=== PATIENT | female | born 1965 | race Caucasian/White ===

== ENCOUNTER 2017-08-04 18:19 | Emergency (ER) | payer OTHER ==
[~2017-08-04] VITALS: Wt 81.6 kg
[~2017-08-04 18:19] MED LIST: AMOXICILLIN500 MG PO; BACTRIM DS 8001 TA1 PO; BIAXIN; CIPRO500 MG PO; CIPROFLOXACIN500 MG PO; FLAGYL500 MG PO; NAPROSYN500 MG PO; PERCOCET 325 MG1 TA1; PERCOCET 325 MG1 TA2 PO; PROTONIX40 MG PO; PYRIDIUM200 MG PO; ULTRAM50 MG PO; VICODIN 5/500 505 MG PO
[2017-08-04] MEDS ORDERED: BUDEPRION XL150 MG PO (18:23)
[2017-08-04] MEDS ORDERED: GOOD NEIGHBOR L10 MG PO (18:23)
[2017-08-04] MEDS ORDERED: Percocet 325 MG1 TAB PO (18:24)
[2017-08-04] MEDS ORDERED: Tobrex Ophth S2.5 ML OPH (18:26)
[2017-08-04 18:35] VITALS: BP 153/95
== END 2017-08-04 18:34 | disposition home or self-care (01) ==
LOC: ED 18:19
DX: H10.9 Unspecified conjunctivitis (principal); F17.200 Nicotine dependence, unspecified, uncomplicated; Z98.890 Other specified postprocedural states; Z98.51 Tubal ligation status; Z88.6 Allergy status to analgesic agent; Z88.8 Allergy status to other drugs, medicaments and biological substances; Z79.899 Other long term (current) drug therapy

== ENCOUNTER → 2017-09-06 | Outpatient (CLI) | payer OTHER ==
[~2017-09-06] MED LIST changes: +BUDEPRION XL150 MG PO; +GOOD NEIGHBOR L10 MG PO; +Percocet 325 MG1 TAB PO; +Tobrex Ophth S2.5 ML OPH
== END | disposition home or self-care (01) ==
LOC: RAD 08-31 11:00
DX: Z13.820 Encounter for screening for osteoporosis (principal); M81.0 Age-related osteoporosis without current pathological fracture; N95.9 Unspecified menopausal and perimenopausal disorder; E55.9 Vitamin D deficiency, unspecified

== ENCOUNTER 2019-01-25 10:42 | Inpatient (IN) | payer BC ==
[~2019-01-25] VITALS: Ht 162.5 cm; Wt 77.8 kg
--- NOTE | ~2019-01-25 | EKG ---
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
--- NOTE | ~2019-01-25 | ST ---
[place], [place] EXERCISE STRESS TEST REPORT NAME: GREGORIO QURESHI UNIT #: [id number] ROOM: 531 DOCTOR: DYLAN ORLANDO MD BIRTHDATE: [birth year] DOS: 01/26/2019 LEXISCAN STRESS EKG. REFERRING PHYSICIAN: Dr. Brito. INDICATION: Elevated troponin. The patient underwent standard protocol Lexiscan stress EKG. The patient's baseline EKG is normal sinus, nonspecific ST-T wave changes. Heart rate was 83 with blood pressure 112/72. Peak heart rate was 104 with a blood pressure 104/68. The patient had no chest pain, no EKG changes, no arrhythmias. SUMMARY OF FINDINGS: Unremarkable Lexiscan stress EKG. Please see separate report for perfusion scan imaging results. DYLAN ORLANDO MD CM:STRESS:EXERCISE STRESS TEST REPORT [id number] DYLAN ORLANDO MD
--- NOTE | ~2019-01-25 | EKG ---
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
[2019-01-25 10:45] VITALS: BP 145/87
[2019-01-25 11:13] LABS: BASO # 0.1 10*3/uL (0.0-0.1); BASO % 0.6 % (0.0-1.0); EOS # 0.2 10*3/uL (0.0-0.4); EOS % 1.2 % (1.0-4.0); HEMATOCRIT 52.3 % (37.0-47.0); HEMOGLOBIN 16.1 g/dl (12.0-16.0); LYMPH # 2.1 10*3/uL (1.3-4.4); LYMPH % 15.7 % (27.0-41.0); MEAN CELL VOLUME 95.3 fl (81.0-99.0); MEAN CORPUSCULAR HGB 29.3 pg (27.0-31.0); MEAN CORPUSCULAR HGB CONC 30.8 g/dl (33.0-37.0); MEAN PLATELET VOLUME 9.8 fl (9.6-12.3); MONO # 0.9 10*3/uL (0.1-1.0); MONO % 7.1 % (3.0-9.0); NEUT # 9.8 10*3/uL (2.3-7.9); NEUT % 75.1 % (47.0-73.0); PLATELET COUNT AUTOMATED 313 10*3/uL (130-400); RED BLOOD COUNT 5.49 10*6/uL (4.10-5.10)
[2019-01-25 11:23] LABS: ACT PARTIAL THROMBO TIME 26.1 SECONDS (20.0-32.1)
[2019-01-25 11:28] LABS: ALBUMIN 2.8 gm/dl (3.1-4.5); ALKALINE PHOSPHATASE 85 U/L (45-117); BUN 16 mg/dl (7-24); CHLORIDE 105 mmol/L (98-107); CREATININE 0.46 mg/dL (0.55-1.02); LIPASE 91 U/L (73-393); POTASSIUM 4.2 mmol/L (3.5-5.1); SGOT/AST 42 IU/L (3-35); SGPT/ALT 68 U/L (12-78); SODIUM 138 mmol/L (136-145); TOTAL PROTEIN 6.2 gm/dL (6.4-8.2)
[2019-01-25 11:32] LABS: TROPONIN I 0.134 ng/ml (<0.045)
[2019-01-25 12:00] VITALS: BP 142/96
[2019-01-25 12:32] VITALS: BP 126/81
[2019-01-25 13:00] VITALS: BP 142/82
[2019-01-25] MEDS ORDERED: PROAIR HFA8.5 GM INH (13:47)
[2019-01-25] MEDS ORDERED: CALCITONIN-SAL3.7 ML INH (13:49)
[2019-01-25] MEDS ORDERED: DULERA 100 MCG8.8 GM INH (13:51)
[2019-01-25 16:00] VITALS: BP 153/50
[2019-01-25 20:00] VITALS: BP 101/66
[2019-01-26] VITALS: BP 113/66
[2019-01-26 06:32] LABS: BASO % 0.1 % (0.0-1.0); HEMATOCRIT 55.2 % (37.0-47.0); MEAN CELL VOLUME 92.9 fl (81.0-99.0); MEAN CORPUSCULAR HGB 28.6 pg (27.0-31.0); MEAN CORPUSCULAR HGB CONC 30.8 g/dl (33.0-37.0); MONO # 0.3 10*3/uL (0.1-1.0); MONO % 2.7 % (3.0-9.0); NEUT # 11.3 10*3/uL (2.3-7.9); NEUT % 88.5 % (47.0-73.0); PLATELET COUNT AUTOMATED 343 10*3/uL (130-400); RED BLOOD COUNT 5.94 10*6/uL (4.10-5.10); RED CELL DISTRI WIDTH 13.7 % (0-14.5); WHITE BLOOD COUNT 12.7 10*3/uL (4.8-10.8)
[2019-01-26 06:33] LABS: BUN 14 mg/dl (7-24); CHLORIDE 101 mmol/L (98-107); CHOLESTEROL 151 mg/dL (<200); CREATININE 0.51 mg/dL (0.55-1.02); HDL CHOLESTEROL 36 mg/dl (40-60); LDL CHOLESTEROL 98 mg/dL (9-159); PHOSPHOROUS 4.5 mg/dL (2.5-4.9); POTASSIUM 4.3 mmol/L (3.5-5.1); SODIUM 140 mmol/L (136-145); TRIGLYCERIDES 86 mg/dl (<150); VLDL CHOLESTEROL 17 mg/dL (6-40)
[2019-01-26 08:00] VITALS: BP 120/70
[2019-01-26 08:34] LABS: VITAMIN D, 25-HYDROXY 12.1 ng/mL (30-100)
[2019-01-26 13:25] VITALS: BP 125/76
[2019-01-26] MEDS ORDERED: PREDNISONE10 MG PO (15:59)
[2019-01-26] MEDS ORDERED: LASIX20 MG PO (15:59)
[2019-01-26] MEDS ORDERED: AVPAK AZITHROM250 MG PO (15:59)
== END 2019-01-26 17:42 | disposition home or self-care (01) | DRG 871 ==
LOC: ED 10:42 → EDHOLD 12:16 → 5E 12:16
PROVIDERS: Emergency Medicine; Student in an Organized Health Care Education/Training Program; ADMIT Internal Medicine
PROC: 4A02XM4 Measurement of Cardiac Total Activity, External Approach (ICD-10-PCS; principal; 2019-01-26)
PROC: 3E073KZ Introduction of Other Diagnostic Substance into Coronary Artery, Percutaneous Approach (ICD-10-PCS; principal; 2019-01-26)
DX: A41.9 Sepsis, unspecified organism (principal); J96.01 Acute respiratory failure with hypoxia; J18.9 Pneumonia, unspecified organism; I21.A1 Myocardial infarction type 2; E43 Unspecified severe protein-calorie malnutrition; J44.1 Chronic obstructive pulmonary disease with (acute) exacerbation; J44.0 Chronic obstructive pulmonary disease with (acute) lower respiratory infection; I50.9 Heart failure, unspecified; I34.0 Nonrheumatic mitral (valve) insufficiency; I51.7 Cardiomegaly; R65.20 Severe sepsis without septic shock; E66.3 Overweight; F32.9 Major depressive disorder, single episode, unspecified; K57.90 Diverticulosis of intestine, part unspecified, without perforation or abscess without bleeding; D75.1 Secondary polycythemia; R73.9 Hyperglycemia, unspecified; R74.0 Nonspecific elevation of levels of transaminase and lactic acid dehydrogenase [LDH]; F17.210 Nicotine dependence, cigarettes, uncomplicated; Z71.6 Tobacco abuse counseling; Z90.49 Acquired absence of other specified parts of digestive tract; Z98.51 Tubal ligation status; Z80.0 Family history of malignant neoplasm of digestive organs; Z80.8 Family history of malignant neoplasm of other organs or systems; Z82.49 Family history of ischemic heart disease and other diseases of the circulatory system; Z84.89 Family history of other specified conditions; Z88.6 Allergy status to analgesic agent; Z88.8 Allergy status to other drugs, medicaments and biological substances; Z79.899 Other long term (current) drug therapy; Z87.440 Personal history of urinary (tract) infections; Z68.29 Body mass index [BMI] 29.0-29.9, adult

== ENCOUNTER 2019-11-18 16:39 | Inpatient (IN) | payer BC ==
[~2019-11-18] VITALS: Ht 162.6 cm; Wt 83.6 kg
[~2019-11-18 16:39] MED LIST changes: +AVPAK AZITHROM250 MG PO; +CALCITONIN-SAL3.7 ML INH; +DULERA 100 MCG8.8 GM INH; +LASIX20 MG PO; +PREDNISONE10 MG PO; +PROAIR HFA8.5 GM INH
[2019-11-18 16:48] VITALS: BP 158/79
[2019-11-18 17:52] LABS: BASO # 0.1 10*3/uL (0.0-0.1); BASO % 0.5 % (0.0-1.0); EOS # 0.2 10*3/uL (0.0-0.4); EOS % 1.2 % (1.0-4.0); HEMATOCRIT 47.3 % (37.0-47.0); LYMPH # 2.7 10*3/uL (1.3-4.4); LYMPH % 19.3 % (27.0-41.0); MEAN CELL VOLUME 95.2 fl (81.0-99.0); MEAN CORPUSCULAR HGB CONC 30.4 g/dl (33.0-37.0); MEAN PLATELET VOLUME 9.5 fl (9.6-12.3); MONO # 1.1 10*3/uL (0.1-1.0); MONO % 7.7 % (3.0-9.0); NEUT # 9.8 10*3/uL (2.3-7.9); NEUT % 70.9 % (47.0-73.0); PLATELET COUNT AUTOMATED 346 10*3/uL (130-400); RED BLOOD COUNT 4.97 10*6/uL (4.10-5.10); RED CELL DISTRI WIDTH 13.4 % (0-14.5); WHITE BLOOD COUNT 13.8 10*3/uL (4.8-10.8)
[2019-11-18 18:04] LABS: ACT PARTIAL THROMBO TIME 26.6 SECONDS (20.0-32.1)
[2019-11-18 18:09] VITALS: BP 114/80
[2019-11-18 18:12] LABS: ALKALINE PHOSPHATASE 86 U/L (45-117); BUN 12 mg/dl (7-24); CHLORIDE 105 mmol/L (98-107); CREATININE 0.52 mg/dL (0.55-1.02); LIPASE 40 U/L (73-393); POTASSIUM 4.2 mmol/L (3.5-5.1); SGOT/AST 46 IU/L (3-35); SGPT/ALT 75 U/L (12-78); SODIUM 140 mmol/L (136-145); TOTAL PROTEIN 6.4 gm/dL (6.4-8.2)
[2019-11-18 18:14] LABS: TROPONIN I 0.103 ng/ml (<0.045)
--- NOTE | 2019-11-18 18:16 | NUR ---
PT POSITIONED FOR COMFORT WITH SAFETY PRECAUTIONS INTACT AND CALL LIGHT WITHIN REACH,NO COMPLAINTS VOICED,WILL CONTINUE TO MONITOR.
[2019-11-18 18:40] VITALS: BP 123/83
--- NOTE | 2019-11-18 19:12 | NUR ---
PATIENT WHEEZES HAVE RESIDED AFTER THE BREATHING TREATMENT, OXYGEN TITRATED FROM 3L TO 2L NASAL CANNULA.
--- NOTE | 2019-11-18 19:38 | NUR ---
PT W/O COMPLAINTS VOICED AND "FEELING A LITTLE BETTER", PT WATCHING T.V. WITH SAFETY PRECAUTIONS INTACT AND CALL LIGHT WITHIN REACH.
[2019-11-18 20:27] VITALS: BP 116/73
--- NOTE | 2019-11-18 20:57 | NUR ---
O2 D/C'D WITH PT'S SAO2 REMAINING CONSISTENTLY BETWEEN 84-89% ON RA,AVE CHAPA,PT WITH O2 REAPPLIED @ 2L VIA NC.
[2019-11-18 22:08] VITALS: BP 141/90
--- NOTE | 2019-11-18 22:08 | NUR ---
A 54, admitted to , under the services of RELL Vicente DO with a diagnosis of COPD . Chief complaint is SHORTNESS OF BREATH. Patient arrived via stretcher from ER. Monitor applied. Initial assessment completed. Vital signs taken and recorded. RELL VICENTE DO notified of admission to the unit. Orders received. See assessment for past medical history, medications and allergies. Patient and/or family oriented to unit. [facility]. Clothing/patient valuable form completed. SHARAD ANDINO
[2019-11-18 22:15] VITALS: BP 125/79
--- NOTE | 2019-11-18 23:05 | NUR ---
MEDICATED WITH NORCO FOR C/O ARTHRITIC PAIN.
[2019-11-19] VITALS: BP 132/81
--- NOTE | 2019-11-19 00:05 | NUR ---
RESTING IN BED WITH EYES CLOSED; NORCO EFFECTIVE.
[2019-11-19 00:30] LABS: TROPONIN I 0.08 ng/ml (<0.045)
--- NOTE | 2019-11-19 00:30 | NUR ---
CRITICAL TROPONIN CALLED TO ME & THEN CALLED TO DR. LANIER.
--- NOTE | 2019-11-19 04:00 | NUR ---
RESTING IN BED WITH EYES CLOSED; 02 INTACT. CALL LIGHT WITHIN REACH.
--- NOTE | 2019-11-19 05:55 | NUR ---
PULSE OX 95% ON 3 LITERS.
[2019-11-19 06:08] LABS: BASO % 0.1 % (0.0-1.0); HEMATOCRIT 48.3 % (37.0-47.0); LYMPH # 0.8 10*3/uL (1.3-4.4); LYMPH % 7.9 % (27.0-41.0); MEAN CELL VOLUME 95.3 fl (81.0-99.0); MEAN CORPUSCULAR HGB 29.2 pg (27.0-31.0); MEAN CORPUSCULAR HGB CONC 30.6 g/dl (33.0-37.0); MEAN PLATELET VOLUME 9.8 fl (9.6-12.3); MONO # 0.4 10*3/uL (0.1-1.0); MONO % 3.5 % (3.0-9.0); NEUT # 8.7 10*3/uL (2.3-7.9); NEUT % 87.6 % (47.0-73.0); PLATELET COUNT AUTOMATED 340 10*3/uL (130-400); RED BLOOD COUNT 5.07 10*6/uL (4.10-5.10); RED CELL DISTRI WIDTH 13.3 % (0-14.5); WHITE BLOOD COUNT 9.9 10*3/uL (4.8-10.8)
[2019-11-19 06:10] LABS: BUN 16 mg/dl (7-24); CHLORIDE 103 mmol/L (98-107); CHOLESTEROL 136 mg/dL (<200); CREATININE 0.53 mg/dL (0.55-1.02); FREE T4 0.96 ng/dl (0.76-1.46); HDL CHOLESTEROL 41 mg/dl (40-60); LDL CHOLESTEROL 83 mg/dL (9-159); POTASSIUM 4.1 mmol/L (3.5-5.1); SODIUM 142 mmol/L (136-145); TRIGLYCERIDES 62 mg/dl (<150); VLDL CHOLESTEROL 12 mg/dL (6-40)
[2019-11-19 06:18] LABS: THYROID STIM HORMONE (HS) 0.362 uIU/ml (0.358-4.75)
[2019-11-19 06:51] LABS: VITAMIN D, 25-HYDROXY 13.1 ng/mL (30-100)
[2019-11-19 08:00] VITALS: BP 128/74
[2019-11-19 12:00] VITALS: BP 134/69
--- NOTE | 2019-11-19 13:02 | NUR ---
PERCOCET 5/325 GIVEN PER PATIENT REQUEST FOR PAIN IN RIGHT SHOULDER AND RIGHT LEG RATING 8/10.
--- NOTE | 2019-11-19 14:00 | NUR ---
NO COMPLAINTS OF PAIN. PERCOCET EFFECTIVE.
[2019-11-19 16:00] VITALS: BP 112/60
[2019-11-19 20:00] VITALS: BP 139/82
--- NOTE | 2019-11-19 20:40 | NUR ---
PATIENT ASSESSMENT COMPLETED AT THIS TIME WITHOUT INCIDENT. PATIENT DENIES ANY CHEST PAIN, SOB, OR OTHER DISTRESS. DOES COMPLAIN OF CHRONIC PAIN IN HER SHOULDERS AND LEGS, WILL MEDICATED WITH REQUESTED PRN PERCOCET. CALL LIGHT WITHIN REACH, WILL CONTINUE TO MONITOR.
--- NOTE | 2019-11-19 21:10 | NUR ---
PRN PERCOCET GIVEN AT THIS TIME FOR COMPLAINT OF 7/10 CHRONIC PAIN IN HER SHOULDERS AND LEGS. A&O X3, CALL LIGHT WITHIN REACH, WILL CONTINUE TO MONITOR.
--- NOTE | 2019-11-19 22:00 | NUR ---
PATIENT RESTING IN BED IN A POSITION OF COMFORT, STATED PAIN IS NOW A 4/10 AFTER PRN PERCOCET WAS ADMINISTERED.
[2019-11-20] VITALS: BP 102/81
--- NOTE | 2019-11-20 04:02 | NUR ---
PRN TYLENOL GIVEN AT THIS TIME FOR PATIENT COMPLAINT OF A HEADACHE 10/31. A&O X3, CALL LIGHT WITHIN REACH, WILL CONTINUE TO MONTIOR.
--- NOTE | 2019-11-20 04:50 | NUR ---
PATIENT RESTING IN BED IN A POSITION OF COMFORT WITH EYES CLOSED AT THIS TIME, RESPIRATIONS EASY AND NON-LABORED. PRN TYLENOL APPEARS TO BE EFFECTIVE AT THIS TIME. CALL LIGHT WITHIN REACH, WILL CONTINUE TO MONITOR.
[2019-11-20 06:25] LABS: BUN 16 mg/dl (7-24); CHLORIDE 104 mmol/L (98-107); CREATININE 0.45 mg/dL (0.55-1.02); POTASSIUM 4.7 mmol/L (3.5-5.1); SODIUM 143 mmol/L (136-145)
[2019-11-20 06:30] LABS: BASO % 0.2 % (0.0-1.0); HEMATOCRIT 47.6 % (37.0-47.0); LYMPH # 1.9 10*3/uL (1.3-4.4); LYMPH % 10.2 % (27.0-41.0); MEAN CELL VOLUME 96.6 fl (81.0-99.0); MONO # 1.4 10*3/uL (0.1-1.0); MONO % 7.7 % (3.0-9.0); NEUT # 14.9 10*3/uL (2.3-7.9); NEUT % 81.3 % (47.0-73.0); PLATELET COUNT AUTOMATED 359 10*3/uL (130-400); RED BLOOD COUNT 4.93 10*6/uL (4.10-5.10); RED CELL DISTRI WIDTH 13.5 % (0-14.5); WHITE BLOOD COUNT 18.3 10*3/uL (4.8-10.8)
--- NOTE | 2019-11-20 06:30 | NUR ---
24 HOUR CHART CHECK COMPLETE
--- NOTE | 2019-11-20 07:30 | NUR ---
IN PT ROOM TO COMPLETE ASSESSMENT AT THIS TIME, SHE IS SITTING UP IN HER BED FINISHING HER BREATHING TREATMENT. PT STATES THAT SHE FEELS SOB, BUT NOT BAD SHE WAS FEELING. SHE IS ON 3L NC. SHE VOICES NO OTHER COMPLAINTS AT THIS TIME. CALL LIGHT WITHIN REACH, WILL CONTINUE TO MONITOR
[2019-11-20 07:46] VITALS: BP 138/84
--- NOTE | 2019-11-20 07:47 | NUR ---
Shift chart check completed.
--- NOTE | 2019-11-20 09:00 | NUR ---
Police Officer Crime Prevention in to talk to patient. Patient states lives at home with son. There are no steps in the home. Physician: ana paula [facility]acy: [facility] Home health services: none Patient's level of ADLs: INDEPENDENT Patient has working utilities: all working DME: [employer] Follow-up physician's appointment after d/c: will be made by hospitalist nurse director upon discharge Does patient want to access PORTAL?: no Discharge plan discussed with patient, she states she lives at home with her son, she is independent in adls and ambulation, works, drives, has a nebulzier at home, no home oxygen, she states she will return home when discharged and denies any home needs. FRANCESCA GUZMÁN
--- NOTE | 2019-11-20 09:07 | NUR ---
CALLED DR DANIELLE FOR NEW CONSULT
--- NOTE | 2019-11-20 09:47 | NUR ---
DR DANIELLE IN TO SEE PATIENT
--- NOTE | 2019-11-20 11:06 | NUR ---
PRN TYLENOL PO GIVEN FOR COMPLAINTS OF A HEADACHE. WILL MONITOR FOR EFFECTIVENESS, CALL LIGHT WITHIN REACH
[2019-11-20 12:00] VITALS: BP 148/88
--- NOTE | 2019-11-20 12:00 | NUR ---
TYLENOL AFFECTIVE PER PT
--- NOTE | 2019-11-20 12:18 | NUR ---
PRN PERCOCET PO GIVEN FOR COMPLAINTS OF LEG, ARM AND NECK PAIN. WILL MONITOR FOR EFFECTIVENESS
[2019-11-20 12:56] LABS: ABG BASE EXCESS 5.9 mmol/L (-2.0-2.0); ARTERIAL BLOOD GAS PH 7.332 (7.35-7.45)
--- NOTE | 2019-11-20 13:00 | NUR ---
PRN PERCOCET EFFECTIVE PER PT. CALL LIGHT WITHIN REACH, WILL CONTINUE TO MONITOR
--- NOTE | 2019-11-20 13:11 | NUR ---
IV started left antecubital with #22 protective cath after 1 attempts. Site prepped with Chloroprep. Sterile dressing applied. Patient tolerated procedure well. JAYSON DE JESUS
--- NOTE | 2019-11-20 13:12 | NUR ---
PT IS EATING LUNCH AND CT MADE AWARE, THEY STATE TO HAVE THE PATIENT STOP EATING AND SHE WILL GO DOWN FOR CT IN 4 HOURS
--- NOTE | 2019-11-20 13:22 | NUR ---
CALLED DR DANIELLE AND INFORMED HIM OF BLOOD GAS. WILL ADD ORDERS DESIRED
--- NOTE | 2019-11-20 13:57 | NUR ---
PT PLACED ON BIPAP
[2019-11-20 16:00] VITALS: BP 121/72
[2019-11-20 16:06] LABS: ABG BASE EXCESS 7.1 mmol/L (-2.0-2.0); ARTERIAL BLOOD GAS PH 7.385 (7.35-7.45)
--- NOTE | 2019-11-20 16:44 | NUR ---
DR DANIELLE NOTIFIED OF [facility], HE WANTS THE PATIENT TO BE KEPT ON BIPAP AT NIGHT WITH THE SAME SETTINGS AND NEEDED
--- NOTE | 2019-11-20 16:45 | NUR ---
PT OFF FLOOR TO CT
--- NOTE | 2019-11-20 17:14 | NUR ---
PT BACK ON FLOOR
[2019-11-20 20:00] VITALS: BP 128/77
--- NOTE | 2019-11-20 20:15 | NUR ---
PATIENT ASSESSMENT COMPLETED AT THIS TIME WITHOUT INCIDENT. PATIENT DENIES ANY CHEST PAIN, SOB, OR OTHER DISTRES AT THIS TIME. IS REQUESTING PRN PERCOCET WITH NIGHTTIME MEDICATIONS SHE TAKES AT HOME. CALL LIGHT WITHIN REACH, WILL CONTINUE TO MONITOR.
--- NOTE | 2019-11-20 21:16 | NUR ---
PRN PERCOCET GIVEN ORALLY AT THIS TIME AT PATIENT REQUEST FOR CHRONIC BACK, SHOULDER AND LEG PAIN. A&O X3, CALL LIGHT WITHIN REACH, WILL CONTINUE TO MONITOR.
--- NOTE | 2019-11-20 22:05 | NUR ---
PATIENT STATED THAT PAIN WENT FROM A 6/10 TO A 4/10 AFTER PRN PERCOCET WAS ADMINISTERED. A&O X3, CALL LIGHT WITHIN REACH. WILL CONTINUE TO MONITOR.
--- NOTE | 2019-11-20 23:15 | NUR ---
Pt placed on BiPap 16/8 and 30%. Alrams on and audible. SpO2 96%
--- NOTE | 2019-11-20 23:48 | NUR ---
PRN RESTORIL GIVEN AT PATIENT REQUEST FOR SLEEP TO PATIENT STATED "HELP ME SLEEP WITH THIS MACHINE ON", PATIENT WAS BEING PLACED ON BIPAP AT THIS TIME. A&O X3, CALL LIGHT WITHIN REACH, WILL CONTINUE TO MONITOR.
[2019-11-21] VITALS: BP 144/82
--- NOTE | 2019-11-21 00:35 | NUR ---
PATIENT RESTING IN BED IN A POSITION OF COMFORT AT THIS TIME WITH BIPAP IN USE. CALL LIGHT WITHIN REACH. RESTORIL APPEARS TO HAVE BEEN EFFECTIVE. WILL CONTINUE TO MONITOR.
--- NOTE | 2019-11-21 03:45 | NUR ---
Pt taken off BiPap per nurse. Placed back on 3L NC. SpO2 96%
--- NOTE | 2019-11-21 03:52 | NUR ---
24 HOUR CHART CHECK COMPLETE
[2019-11-21 06:54] LABS: BASO % 0.2 % (0.0-1.0); HEMATOCRIT 47.3 % (37.0-47.0); LYMPH # 1.8 10*3/uL (1.3-4.4); LYMPH % 11.5 % (27.0-41.0); MEAN CELL VOLUME 96.5 fl (81.0-99.0); MEAN CORPUSCULAR HGB 29.6 pg (27.0-31.0); MEAN CORPUSCULAR HGB CONC 30.7 g/dl (33.0-37.0); MEAN PLATELET VOLUME 9.5 fl (9.6-12.3); MONO # 1.1 10*3/uL (0.1-1.0); NEUT # 12.7 10*3/uL (2.3-7.9); NEUT % 80.7 % (47.0-73.0); PLATELET COUNT AUTOMATED 350 10*3/uL (130-400); RED CELL DISTRI WIDTH 13.3 % (0-14.5); WHITE BLOOD COUNT 15.7 10*3/uL (4.8-10.8)
[2019-11-21 07:16] LABS: ALBUMIN 2.9 gm/dl (3.1-4.5); ALKALINE PHOSPHATASE 68 U/L (45-117); BUN 20 mg/dl (7-24); CHLORIDE 103 mmol/L (98-107); CREATININE 0.52 mg/dL (0.55-1.02); POTASSIUM 3.8 mmol/L (3.5-5.1); SGOT/AST 8 IU/L (3-35); SGPT/ALT 39 U/L (12-78); SODIUM 141 mmol/L (136-145); TOTAL PROTEIN 6.6 gm/dL (6.4-8.2)
--- NOTE | 2019-11-21 07:56 | NUR ---
PT IS SLEEPING AT THIS TIME. RESPIRATIONS RELAXED AND REGULAR. 3L NC ON. CALL LIGHT NEAR PATIENT. WILL CONTINUE TO MONITOR
[2019-11-21 08:00] VITALS: BP 131/60
--- NOTE | 2019-11-21 08:22 | NUR ---
RUPERTO SERRA IN TO SEE PATIENT
--- NOTE | 2019-11-21 08:37 | NUR ---
CONSULT CALLED TO ANSWERING SERVICE FOR DR MADDEN
--- NOTE | 2019-11-21 09:50 | NUR ---
DR MOODY IN TO SEE PATIENT AT THIS TIME.
[2019-11-21 12:00] VITALS: BP 145/81
--- NOTE | 2019-11-21 12:40 | NUR ---
HOME O2 ASSESSMENT: ROOM AIR AT REST: SPO2 90-92% HR 98 BP 128/72 ROOM AIR WITH AMBULATION: SPO2 86% HR 118 RR 24 2L SUPPLEMENTAL O2 AT REST: SPO2 94% HR 92 2L O2 WITH AMBULATION: SPO2 91-93% HR 100 RECOVERY ON 2L NC: SPO2 92% HR 104 RR 24 BP 144/81 PT. REQUIRES 2L O2 WITH AMBULATION TO KEEP SPO2 >= TO 88%. RN NOTIFIED.
[2019-11-21 13:27] LABS: ABG BASE EXCESS 7.8 mmol/L (-2.0-2.0); ARTERIAL BLOOD GAS PH 7.372 (7.35-7.45)
--- NOTE | 2019-11-21 13:45 | NUR ---
DR. DANIELLE OFFICE CALLED WITH [facility] RESULTS
[2019-11-21 16:00] VITALS: BP 143/77
--- NOTE | 2019-11-21 16:07 | NUR ---
PRN PERCOCET PO GIVEN FOR COMPLAINTS OF SHOULDER AND BACK PAIN, WILL MONITOR FOR EFFECTIVENESS
--- NOTE | 2019-11-21 17:00 | NUR ---
PERCOCET IS EFFECTIVE PER PT. WILL CONTINUE TO MONITOR
--- NOTE | 2019-11-21 19:25 | NUR ---
ASSUMED CARE OF PATIENT. PATIENT IS RESTING IN BED WITH EASY AND REGULAR RESPERS ON 2L O2 VIA NC. ASSESSMENT IS COMPLETE WITH NO C/O OR S/S OF DISTRESS NOTED AT THIS TIME. BED IS LOW, LOCKED, AND CALL LIGHT IS WITHIN REACH. RESPIRATORY INTO GIVE PATIENT BREATHING TREATMENT. WILL CONTINUE TO MONITOR, SEE INTERVENTIONS.
[2019-11-21 20:00] VITALS: BP 148/82
--- NOTE | 2019-11-21 23:26 | NUR ---
SHOULDER AND LEG PAIN PER PT. RATED "7" PERCOCET GIVEN FOR PAIN PER ORDER. SEE MAR. RESTORIL GIVEN FOR INSOMNIA PER PT. REQUEST. SEE MAR.
--- NOTE | 2019-11-21 23:30 | NUR ---
Pt placed on BiPap 16/8 and FiO2 30%. Alarms on and audible.
[2019-11-22] VITALS: BP 151/90
--- NOTE | 2019-11-22 00:25 | NUR ---
PERCOCET EFFECTIVE FOR PAIN PER PT. RESTORIL NOT EFFECTIVE YET PATIENT STILL AWAKE. HAS BIPAP ON.
--- NOTE | 2019-11-22 01:09 | NUR ---
PATIENT REMOVED BIPAP STATED "I JUST CAN'T DO IT. I TRIED"
--- NOTE | 2019-11-22 03:09 | NUR ---
SLEEPING NO ACUTE DISTRESS NOTED.
--- NOTE | 2019-11-22 03:46 | NUR ---
24 HR chart check completed.
--- NOTE | 2019-11-22 07:47 | NUR ---
ASSESSMENT COMPLETE AT THIS TIME. PT HAS COMPLAINTS OF PAIN AND A HEAD ACHE WHICH SHE STATES IS FROM THE BIPAP. RESPIRATORY ON THE FLOOR AND SET UP PORTABLE OXYGEN IF PATIENT FEELS UP TO WALKING TODAY. CALL LIGHT WITHIN REACH. PRN PERCOCET GIVEN FOR PAIN IN BACK AND LEGS. WILL CONTINUE TO MONITOR FOR EFFECTIVENESS.
[2019-11-22 08:00] VITALS: BP 148/97
--- NOTE | 2019-11-22 08:35 | NUR ---
PT STATES THAT THE PERCOCET IS "SOMEWHAT EFFECTIVE". WILL CONTINUE TO MONITOR
--- NOTE | 2019-11-22 09:00 | NUR ---
case management visits with patient, she states she is possibly being discharged to home today, she denies any home needs, case management will follow
[2019-11-22] MEDS ORDERED: LEVOFLOXACIN500 MG PO (11:31)
[2019-11-22] MEDS ORDERED: Vitamin D (1,000 UNI PO (11:35)
[2019-11-22] MEDS ORDERED: PREDNISONE10 MG PO (11:35)
[2019-11-22] MEDS ORDERED: NICODERM T (11:35)
--- NOTE | 2019-11-22 12:09 | NUR ---
TOBY GARCIA FROM [employer] CONTACTED FOR HOME O2 SET UP.
--- NOTE | 2019-11-22 12:21 | NUR ---
IN PT ROOM AND WENT OVER DISCHARGE INSTRUCTIONS WITH THE PATIENT, SHE HAS NO QUESTIONS AT THIS TIME. PT RECEIVED HER LUNCH AT THIS TIME SO SHE WILL EAT AND THEN HER IV WILL BE REMOVED AND SHE IS ABLE TO GO HOME
--- NOTE | 2019-11-22 12:29 | NUR ---
RESPIRATORY IN THE ROOM AND GAVE THE PATIENT HER OXYGEN TANKS AND REVIEWED HOW TO USE THE OXYGEN AT HOME, SO FROM RESPIRATORY STANDPOINT PATIENT IS FINE TO BE DISCHARGED
--- NOTE | 2019-11-22 12:34 | NUR ---
IV REMOVED AT THIS TIME. PT HAS NO FURTHER QUESTIONS AND STATES THAT WHEN SHE IS DONE EATING HER LUNCH SHE WILL WALK HERSELF OUT
--- NOTE | 2019-11-22 13:08 | NUR ---
PT LEAVING FLOOR AT THIS TIME WITH HER OXYGEN ON AND HAS ALL OF HER BELONGINGS
== END 2019-11-22 13:08 | disposition home or self-care (01) | DRG 871 ==
LOC: ED 16:39 → EDHOLD 21:04 → 4E 21:04
PROVIDERS: Internal Medicine; Internal Medicine Critical Care Medicine; Nurse Practitioner Family; Registered Nurse; Student in an Organized Health Care Education/Training Program; ADMIT Emergency Medicine
PROC: 5A09357 Assistance with Respiratory Ventilation, Less than 24 Consecutive Hours, Continuous Positive Airway Pressure (ICD-10-PCS; principal; 2019-11-20)
PROC: 5A09357 Assistance with Respiratory Ventilation, Less than 24 Consecutive Hours, Continuous Positive Airway Pressure (ICD-10-PCS; 2019-11-21)
DX: A41.9 Sepsis, unspecified organism (principal); J18.9 Pneumonia, unspecified organism; J96.21 Acute and chronic respiratory failure with hypoxia; J96.22 Acute and chronic respiratory failure with hypercapnia; J44.1 Chronic obstructive pulmonary disease with (acute) exacerbation; E44.0 Moderate protein-calorie malnutrition; J44.0 Chronic obstructive pulmonary disease with (acute) lower respiratory infection; I50.32 Chronic diastolic (congestive) heart failure; R65.20 Severe sepsis without septic shock; E66.9 Obesity, unspecified; F17.210 Nicotine dependence, cigarettes, uncomplicated; R91.1 Solitary pulmonary nodule; I27.20 Pulmonary hypertension, unspecified; F32.9 Major depressive disorder, single episode, unspecified; T38.0X5A Adverse effect of glucocorticoids and synthetic analogues, initial encounter; R73.9 Hyperglycemia, unspecified; E83.41 Hypermagnesemia; Z82.49 Family history of ischemic heart disease and other diseases of the circulatory system; Z88.8 Allergy status to other drugs, medicaments and biological substances; Z90.49 Acquired absence of other specified parts of digestive tract; Z98.51 Tubal ligation status; Y92.89 Other specified places as the place of occurrence of the external cause; Z79.899 Other long term (current) drug therapy; Z80.8 Family history of malignant neoplasm of other organs or systems; Z68.31 Body mass index [BMI] 31.0-31.9, adult

== ENCOUNTER 2020-07-04 11:11 | Emergency (ER) | payer BC ==
[~2020-07-04] VITALS: Ht 162.5 cm; Wt 90.7 kg
[~2020-07-04 11:11] MED LIST changes: +LEVOFLOXACIN500 MG PO; +NICODERM T; +Vitamin D (1,000 UNI PO
[2020-07-04 11:17] VITALS: BP 127/77
[2020-07-04 11:50] LABS: BILIRUBIN Negative (Negative); BLOOD Negative (Negative); CLARITY Clear (Clear); COLOR Yellow (Yellow); GLUCOSE Negative (Negative); KETONE Negative (Negative); LEUKO ESTERASE 1+ (Negative); NITRITE Positive (Negative); SPECIFIC GRAVITY 1.015 (1.001-1.030); UROBILINOGEN 0.2 E.U./dl (0.0-1.0)
[2020-07-04 12:07] LABS: BACTERIA 4+; WBC 31-40 wbc/hpf (0-5)
[2020-07-04] MEDS ORDERED: SEPTDS PO (12:56)
== END 2020-07-04 13:09 | disposition home or self-care (01) ==
LOC: ED 11:11
PROVIDERS: Physician Assistant
DX: N39.0 Urinary tract infection, site not specified (principal); R10.9 Unspecified abdominal pain; J44.9 Chronic obstructive pulmonary disease, unspecified; F17.200 Nicotine dependence, unspecified, uncomplicated; Z88.8 Allergy status to other drugs, medicaments and biological substances; Z79.899 Other long term (current) drug therapy; Z90.49 Acquired absence of other specified parts of digestive tract; Z98.890 Other specified postprocedural states; Z98.51 Tubal ligation status

== ENCOUNTER 2020-07-11 10:33 | Emergency (ER) | payer BC ==
[~2020-07-11] VITALS: Wt 90.7 kg
[~2020-07-11 10:33] MED LIST changes: +SEPTDS PO
[2020-07-11 10:38] VITALS: BP 124/64
[2020-07-11 11:12] LABS: BILIRUBIN Negative (Negative); BLOOD Negative (Negative); CLARITY Clear (Clear); COLOR Yellow (Yellow); GLUCOSE Negative (Negative); KETONE Negative (Negative); LEUKO ESTERASE Trace (Negative); NITRITE Negative (Negative); SPECIFIC GRAVITY >= 1.030 (1.001-1.030)
[2020-07-11 11:19] LABS: BASO # 0.1 10*3/uL (0.0-0.1); BASO % 0.6 % (0.0-1.0); EOS # 0.4 10*3/uL (0.0-0.4); EOS % 2.4 % (1.0-4.0); HEMATOCRIT 43.9 % (37.0-47.0); LYMPH # 4.1 10*3/uL (1.3-4.4); LYMPH % 25.2 % (27.0-41.0); MEAN CELL VOLUME 89.4 fl (81.0-99.0); MEAN CORPUSCULAR HGB 28.9 pg (27.0-31.0); MEAN CORPUSCULAR HGB CONC 32.3 g/dl (33.0-37.0); MEAN PLATELET VOLUME 9.5 fl (9.6-12.3); MONO # 1.3 10*3/uL (0.1-1.0); MONO % 7.7 % (3.0-9.0); NEUT # 10.3 10*3/uL (2.3-7.9); NEUT % 63.6 % (47.0-73.0); PLATELET COUNT AUTOMATED 433 10*3/uL (130-400); RED BLOOD COUNT 4.91 10*6/uL (4.10-5.10); RED CELL DISTRI WIDTH 13.1 % (0-14.5); WHITE BLOOD COUNT 16.1 10*3/uL (4.8-10.8)
[2020-07-11 11:22] LABS: MUCOUS TRACE
[2020-07-11 11:28] LABS: BUN 26 mg/dl (7-24); CHLORIDE 105 mmol/L (98-107); CREATININE 0.73 mg/dL (0.55-1.02); POTASSIUM 3.6 mmol/L (3.5-5.1); SODIUM 140 mmol/L (136-145)
[2020-07-11] MEDS ORDERED: FLOMAX0.4 MG PO (13:17)
== END 2020-07-11 13:25 | disposition home or self-care (01) ==
LOC: ED 10:33
PROVIDERS: Internal Medicine
DX: N20.0 Calculus of kidney (principal); Z88.8 Allergy status to other drugs, medicaments and biological substances; Z79.899 Other long term (current) drug therapy; Z90.49 Acquired absence of other specified parts of digestive tract; Z98.890 Other specified postprocedural states; Z98.51 Tubal ligation status

== ENCOUNTER 2020-09-05 20:12 | Emergency (ER) | payer BC ==
[~2020-09-05 20:12] MED LIST changes: +FLOMAX0.4 MG PO
[2020-09-05 20:18] VITALS: BP 135/95
[2020-09-05 21:55] LABS: BILIRUBIN Negative (Negative); BLOOD Negative (Negative); CLARITY Clear (Clear); COLOR Yellow (Yellow); GLUCOSE Negative (Negative); KETONE Negative (Negative); LEUKO ESTERASE Negative (Negative); NITRITE Negative (Negative); SPECIFIC GRAVITY 1.015 (1.001-1.030); UROBILINOGEN 0.2 E.U./dl (0.0-1.0)
[2020-09-05 22:09] LABS: BACTERIA TRACE
== END 2020-09-06 00:17 | disposition home or self-care (01) ==
LOC: ED 20:12
PROVIDERS: Emergency Medicine
DX: S22.41XA Multiple fractures of ribs, right side, initial encounter for closed fracture (principal); I11.0 Hypertensive heart disease with heart failure; I50.9 Heart failure, unspecified; J44.9 Chronic obstructive pulmonary disease, unspecified; F32.9 Major depressive disorder, single episode, unspecified; Z79.899 Other long term (current) drug therapy; Z88.8 Allergy status to other drugs, medicaments and biological substances; Z90.49 Acquired absence of other specified parts of digestive tract; Z98.890 Other specified postprocedural states; Z98.51 Tubal ligation status; Z87.891 Personal history of nicotine dependence; X58.XXXA Exposure to other specified factors, initial encounter; Y93.89 Activity, other specified; Y92.89 Other specified places as the place of occurrence of the external cause; Y99.8 Other external cause status

== ENCOUNTER 2021-06-15 20:59 | Emergency (ER) | payer BC ==
[~2021-06-15] VITALS: Wt 99.8 kg
[2021-06-15 21:05] VITALS: BP 159/106
== END 2021-06-16 00:07 | disposition home or self-care (01) ==
LOC: ED 20:59
DX: S92.901A Unspecified fracture of right foot, initial encounter for closed fracture (principal); J44.9 Chronic obstructive pulmonary disease, unspecified; Z88.6 Allergy status to analgesic agent; Z88.8 Allergy status to other drugs, medicaments and biological substances; Z79.899 Other long term (current) drug therapy; Z90.49 Acquired absence of other specified parts of digestive tract; Z98.51 Tubal ligation status; W00.0XXA Fall on same level due to ice and snow, initial encounter; Y93.89 Activity, other specified; Y92.89 Other specified places as the place of occurrence of the external cause; Y99.8 Other external cause status

== ENCOUNTER → 2021-06-23 | Outpatient (CLI) | payer BC | LOC: ORTHO 00:21 | PROVIDERS: ATTEND Orthopaedic Surgery | DX: S92.324D Nondisplaced fracture of second metatarsal bone, right foot, subsequent encounter for fracture with routine healing (principal); M79.89 Other specified soft tissue disorders; X58.XXXD Exposure to other specified factors, subsequent encounter ==

== ENCOUNTER 2021-07-06 12:54 | Emergency (ER) | payer OTHER, BC ==
[2021-07-06 12:54] VITALS: BP 130/74
== END 2021-07-06 14:43 | disposition home or self-care (01) ==
LOC: ED 12:54
DX: S01.01XA Laceration without foreign body of scalp, initial encounter (principal); F17.210 Nicotine dependence, cigarettes, uncomplicated; Z88.8 Allergy status to other drugs, medicaments and biological substances; Z79.899 Other long term (current) drug therapy; Z98.51 Tubal ligation status; Z90.49 Acquired absence of other specified parts of digestive tract; Z98.890 Other specified postprocedural states; V49.9XXA Car occupant (driver) (passenger) injured in unspecified traffic accident, initial encounter; Y93.89 Activity, other specified; Y92.89 Other specified places as the place of occurrence of the external cause; Y99.8 Other external cause status

== ENCOUNTER → 2021-07-11 | Outpatient (CLI) | payer BC | END | disposition home or self-care (01) | LOC: RAD 09:11 | PROVIDERS: ATTEND Orthopaedic Surgery | DX: M79.89 Other specified soft tissue disorders (principal); S92.324D Nondisplaced fracture of second metatarsal bone, right foot, subsequent encounter for fracture with routine healing; S92.334D Nondisplaced fracture of third metatarsal bone, right foot, subsequent encounter for fracture with routine healing; X58.XXXD Exposure to other specified factors, subsequent encounter ==

== ENCOUNTER → 2021-08-22 | Outpatient (CLI) | payer BC | END | disposition home or self-care (01) | LOC: ORTHO 01:49 | PROVIDERS: ATTEND Orthopaedic Surgery | DX: S92.334D Nondisplaced fracture of third metatarsal bone, right foot, subsequent encounter for fracture with routine healing (principal); S92.324D Nondisplaced fracture of second metatarsal bone, right foot, subsequent encounter for fracture with routine healing; X58.XXXD Exposure to other specified factors, subsequent encounter ==

== ENCOUNTER → 2021-10-24 | Outpatient (CLI) | payer BC | END | disposition home or self-care (01) | LOC: COVID19 01:08 | PROVIDERS: ATTEND Internal Medicine | DX: Z20.822 Contact with and (suspected) exposure to COVID-19 (principal) ==

== ENCOUNTER → 2021-10-31 | Outpatient (CLI) | payer BC | END | disposition home or self-care (01) | LOC: COVID19 00:07 | PROVIDERS: ATTEND Internal Medicine | DX: Z20.822 Contact with and (suspected) exposure to COVID-19 (principal) ==

== ENCOUNTER → 2021-11-14 | Outpatient (CLI) | payer BC | END | disposition home or self-care (01) | LOC: COVID19 00:02 | PROVIDERS: ATTEND Internal Medicine | DX: Z11.52 Encounter for screening for COVID-19 (principal); Z20.822 Contact with and (suspected) exposure to COVID-19 ==

== ENCOUNTER → 2023-08-10 | Outpatient (CLI) | payer BC ==
[2023-08-10 13:31] LABS: BASO # 0.1 10*3/uL (0.0-0.1); BASO % 0.3 % (0.0-1.0); EOS # 0.7 10*3/uL (0.0-0.4); EOS % 3.7 % (1.0-4.0); HEMATOCRIT 45.9 % (37.0-47.0); LYMPH # 2.1 10*3/uL (1.3-4.4); LYMPH % 11.8 % (27.0-41.0); MEAN CELL VOLUME 94.8 fl (81.0-99.0); MEAN CORPUSCULAR HGB 29.3 pg (27.0-31.0); MEAN CORPUSCULAR HGB CONC 30.9 g/dl (33.0-37.0); MEAN PLATELET VOLUME 9.1 fl (9.6-12.3); MONO # 1.3 10*3/uL (0.1-1.0); MONO % 6.9 % (3.0-9.0); NEUT # 13.9 10*3/uL (2.3-7.9); NEUT % 76.7 % (47.0-73.0); PLATELET COUNT AUTOMATED 303 10*3/uL (130-400); RED BLOOD COUNT 4.84 10*6/uL (4.10-5.10); RED CELL DISTRI WIDTH 13.2 % (0-14.5); RETICULOCYTE % 1.57 % (0.50-2.50); WHITE BLOOD COUNT 18.1 10*3/uL (4.8-10.8)
[2023-08-10 13:33] LABS: BILIRUBIN Negative (Negative); BLOOD Negative (Negative); CLARITY Clear (Clear); COLOR Yellow (Yellow); GLUCOSE Negative (Negative); KETONE Negative (Negative); LEUKO ESTERASE Negative (Negative); NITRITE Negative (Negative); UROBILINOGEN 0.2 E.U./dl (0.0-1.0)
[2023-08-10 13:59] LABS: VITAMIN D, 25-HYDROXY 35.3 ng/mL (30-100)
[2023-08-10 14:51] LABS: ALKALINE PHOSPHATASE 98 U/L (46-116); BUN 11 mg/dl (9-23); CHLORIDE 101 mmol/L (98-107); CHOLESTEROL 184 mg/dL (<200); GAMMA GLUTAMYL TRANSPEPTIDASE 65 U/L (0-73); LDL CHOLESTEROL 106 mg/dL (9-159); POTASSIUM 3.9 mmol/L (3.4-5.1); SGPT/ALT 53 U/L (5-49); T3 UPTAKE 28.7 % (22.4-36.7); THYROXINE (T4) TOTAL 9.1 ug/dl (4.5-10.9); TOTAL PROTEIN 6.9 gm/dL (6.0-8.0); TRIGLYCERIDES 167 mg/dl (<150)
== END | disposition home or self-care (01) ==
LOC: LAB 13:06
PROVIDERS: ATTEND Family Medicine
DX: E78.5 Hyperlipidemia, unspecified (principal); E55.9 Vitamin D deficiency, unspecified; R79.89 Other specified abnormal findings of blood chemistry; R53.83 Other fatigue

== ENCOUNTER → 2024-05-09 | Outpatient (CLI) | payer BC ==
[~2024-05-09] MED LIST changes: +ALDACTONE25 MG PO; +ASPIRIN CHILDRE81 MG PO; +ATORVASTATIN CA40 M1 PO; +BUSPIRONE15 MG PO; +DOXYCYCLINE HY100 M3 PO; +METOPROLOL TART50 M1 PO; +ONCE-DAILY WEL150 MG PO; +OXYCODONE HCL5 MG PO; +OXYGEN NAS; +Regadenoson 0.4 MG/5 ML SYR IV ONE; +SPIRIVA18 MCG PO; +SYMB160 INH; +TRELEGY ELLIPT1 EACH INH; +Technetium Tc 99M Tetrofosmi 0.23 MG KIT IJ SCH
== END | disposition home or self-care (01) ==
LOC: CARD 02:02
PROVIDERS: ATTEND Internal Medicine Cardiovascular Disease
DX: R06.02 Shortness of breath (principal); R79.89 Other specified abnormal findings of blood chemistry; R06.09 Other forms of dyspnea

== ENCOUNTER → 2024-07-17 | Outpatient (CLI) | payer SELFPAY ==
[~2024-07-17] MED LIST changes: +IOHEXOL 300 MG/ML 100 ML VIAL IV ONE; +IOHEXOL 300 MG/ML 100 ML VIAL ONE; -Regadenoson 0.4 MG/5 ML SYR IV ONE; -Technetium Tc 99M Tetrofosmi 0.23 MG KIT IJ SCH
== END | disposition home or self-care (01) ==
LOC: CT 07-13 09:00
PROVIDERS: ATTEND Internal Medicine Critical Care Medicine
DX: Z01.818 Encounter for other preprocedural examination (principal); J44.9 Chronic obstructive pulmonary disease, unspecified; R59.0 Localized enlarged lymph nodes; K76.0 Fatty (change of) liver, not elsewhere classified; Z87.891 Personal history of nicotine dependence; Z68.37 Body mass index [BMI] 37.0-37.9, adult

== ENCOUNTER → 2024-11-13 | Outpatient (CLI) | payer BC ==
[~2024-11-13] MED LIST changes: -IOHEXOL 300 MG/ML 100 ML VIAL IV ONE; -IOHEXOL 300 MG/ML 100 ML VIAL ONE; +PREDNISONE50 MG PO
[2024-11-13 08:45] LABS: BASO % 0.3 % (0.0-1.0); EOS # 0.9 10*3/uL (0.0-0.4); EOS % 5.9 % (1.0-4.0); HEMATOCRIT 38.6 % (37.0-47.0); MEAN CELL VOLUME 95.8 fl (81.0-99.0); MEAN CORPUSCULAR HGB CONC 31.3 g/dl (33.0-37.0); MEAN PLATELET VOLUME 9.4 fl (9.6-12.3); MONO # 1.3 10*3/uL (0.1-1.0); MONO % 8.9 % (3.0-9.0); NEUT # 9.3 10*3/uL (2.3-7.9); PLATELET COUNT AUTOMATED 252 10*3/uL (130-400); RED BLOOD COUNT 4.03 10*6/uL (4.10-5.10); RED CELL DISTRI WIDTH 13.2 % (0-14.5); RETICULOCYTE % 2.65 % (0.50-2.50); WHITE BLOOD COUNT 14.4 10*3/uL (4.8-10.8)
[2024-11-13 09:26] LABS: BILIRUBIN Negative (Negative); BLOOD Negative (Negative); CLARITY Clear (Clear); COLOR Yellow (Yellow); GLUCOSE Negative (Negative); KETONE Negative (Negative); LEUKO ESTERASE Negative (Negative); NITRITE Negative (Negative); PH 6.5 (4.5-8.0)
[2024-11-13 09:39] LABS: BACTERIA TRACE; EPITHELIAL CELLS 0-2; RBC 0-2 rbc/hpf (0-2); WBC 0-2 wbc/hpf (0-5)
[2024-11-13 09:45] LABS: ALKALINE PHOSPHATASE 96 U/L (46-116); BUN 14 mg/dl (9-23); CHLORIDE 98 mmol/L (98-107); CHOLESTEROL 110 mg/dL (<200); GAMMA GLUTAMYL TRANSPEPTIDASE 45 U/L (0-73); LDL CHOLESTEROL 36 mg/dL (9-159); POTASSIUM 4.5 mmol/L (3.4-5.1); SGPT/ALT 21 U/L (5-49); T3 UPTAKE 28.4 % (22.4-36.7); THYROXINE (T4) TOTAL 7.8 ug/dl (4.5-10.9); TOTAL PROTEIN 6.9 gm/dL (6.0-8.0); TRIGLYCERIDES 224 mg/dl (<150)
[2024-11-13 10:30] LABS: VITAMIN D, 25-HYDROXY 37.1 ng/mL (30-100)
== END | disposition home or self-care (01) ==
LOC: LAB 08:09
PROVIDERS: ATTEND Family Medicine
DX: M17.12 Unilateral primary osteoarthritis, left knee (principal); E78.5 Hyperlipidemia, unspecified; E55.9 Vitamin D deficiency, unspecified; R79.89 Other specified abnormal findings of blood chemistry; R53.83 Other fatigue; M25.562 Pain in left knee; M25.561 Pain in right knee; M25.462 Effusion, left knee; M25.461 Effusion, right knee

== ENCOUNTER → 2025-02-26 | Outpatient (CLI) | payer BC | END | disposition home or self-care (01) | LOC: RAD 14:07 | PROVIDERS: ATTEND Family Medicine | DX: M19.032 Primary osteoarthritis, left wrist (principal); M25.542 Pain in joints of left hand ==

== ENCOUNTER 2025-04-19 22:23 | Emergency (ER) | payer OTHER, BC ==
[~2025-04-19] VITALS: Ht 162.5 cm; Wt 90.7 kg
[2025-04-19] MEDS ORDERED: Acetaminophen/Oxycodone 5 MG/325 MG TABLET PO ONE (22:30)
[2025-04-20 00:34] VITALS: BP 110/74
== END 2025-04-20 04:19 | disposition short-term general hospital (02) ==
LOC: ED 22:23
DX: S22.42XA Multiple fractures of ribs, left side, initial encounter for closed fracture (principal); M54.2 Cervicalgia; M54.50 Low back pain, unspecified; J44.9 Chronic obstructive pulmonary disease, unspecified; Z88.6 Allergy status to analgesic agent; Z88.1 Allergy status to other antibiotic agents; Z79.899 Other long term (current) drug therapy; Z79.82 Long term (current) use of aspirin; Z90.49 Acquired absence of other specified parts of digestive tract; Z98.890 Other specified postprocedural states; Z87.891 Personal history of nicotine dependence; V48.5XXA Car driver injured in noncollision transport accident in traffic accident, initial encounter; Y93.89 Activity, other specified; Y92.89 Other specified places as the place of occurrence of the external cause; Y99.8 Other external cause status